=== PATIENT | female | born 1975 | race Asian ===

== ENCOUNTER 2017-03-30 15:54 | Emergency (ER) | payer OTHER ==
[~2017-03-30] VITALS: Ht 167.6 cm; Wt 89.0 kg
[2017-03-30] MEDS ORDERED: HTN PO (15:56)
[2017-03-30 16:02] LABS: GLUCOSE,POINT OF CARE 116 MG/DL (70-110)
[2017-03-30] MEDS ORDERED: MECLIZINE HCL 25 MG TABLET PO ONE (16:45)
[2017-03-30] MEDS ORDERED: SODIUM CHLORIDE 0.9% 1,000 ML IV ONE (16:45)
[2017-03-30 16:59] LABS: BASOPHILS % (AUTO) 0.5 % (0.0-2.0); EOSINOPHILS % (AUTO) 1.1 % (1.0-6.0); HEMATOCRIT 39.1 % (36-46); HEMOGLOBIN 13.6 g/dL (12.0-16.0); LYMPHOCYTES # (AUTO) 2.4 K/uL (1.0-4.8); LYMPHOCYTES % (AUTO) 27.8 % (22.0-44.0); MEAN CORPUSCULAR HGB CONC 34.6 G/dL (31.0-37.0); MEAN CORPUSCULAR VOLUME 90 fL (80-100); MONOCYTES # (AUTO) 0.7 K/uL (0.1-1.0); MONOCYTES % (AUTO) 7.7 % (2.0-9.0); NEUTROPHILS # (AUTO) 5.4 K/uL (1.8-7.7); NEUTROPHILS % (AUTO) 62.9 % (40.0-70.0); PLATELET COUNT (AUTO) 236 K/uL (150-450); RED BLOOD CELL COUNT(AUTO) 4.37 MIL/uL (4.00-5.20); RED CELL DISTRIBUTION WIDTH 13.7 % (11.5-14.5); WHITE BLOOD COUNT (AUTO) 8.5 K/uL (4.5-11.0)
[2017-03-30 17:09] LABS: CALCIUM, TOTAL 9.2 mg/dL (8.8-10.5); CREATININE 1.23 mg/dL (0.60-1.30); POTASSIUM 3.4 mmol/L (3.5-5.1)
[2017-03-30] MEDS ORDERED: ACETAMINOPHEN 500 MG TABLET PO ONE (20:00)
[2017-03-30 20:04] VITALS: BP 126/70
== END 2017-03-30 20:19 | disposition home or self-care (01) ==
LOC: EMS 15:58
DX: R42 Dizziness and giddiness (principal); I10 Essential (primary) hypertension
CPT/HCPCS: 36415; 70450; 71010; 80048; 82962; 84703; 85025; 93005; 96360; 96361; 99285; J7030